=== PATIENT | male | born 1950 | race Caucasian/White ===

== ENCOUNTER → 2023-06-05 13:01 | Outpatient (REF) | payer MEDICARE, SELFPAY | LOC: DHCBS MAIN 13:01 | PROVIDERS: ATTENDING PHYSICIAN Internal Medicine Cardiovascular Disease | DX: Z95.2 Presence of prosthetic heart valve (principal) | CPT/HCPCS: 93306 ==

== ENCOUNTER → 2023-07-07 15:21 | Outpatient (REF) | payer MEDICARE, SELFPAY ==
[2023-07-07 16:14] LABS: INR 1.53; PT 18.2 Sec (11.4-14.6)
== END ==
LOC: REG 15:21
PROVIDERS: ATTENDING PHYSICIAN Internal Medicine Cardiovascular Disease
DX: I25.10 Atherosclerotic heart disease of native coronary artery without angina pectoris (principal); Z95.2 Presence of prosthetic heart valve; I35.8 Other nonrheumatic aortic valve disorders
CPT/HCPCS: 36415; 85610

== ENCOUNTER → 2023-07-17 15:48 | Outpatient (REF) | payer MEDICARE, SELFPAY ==
[2023-07-17 17:35] LABS: INR 2.74; PT 28.9 Sec (11.4-14.6)
== END ==
LOC: REG 15:48
PROVIDERS: ATTENDING PHYSICIAN Internal Medicine Cardiovascular Disease
DX: Z95.2 Presence of prosthetic heart valve (principal); I35.8 Other nonrheumatic aortic valve disorders
CPT/HCPCS: 36415; 85610

== ENCOUNTER → 2023-08-10 16:39 | Outpatient (REF) | payer MEDICARE, SELFPAY ==
[2023-08-10 17:17] LABS: INR 2.03; PT 23.2 Sec (11.4-14.6)
== END ==
LOC: REG 16:39
PROVIDERS: ATTENDING PHYSICIAN Internal Medicine Cardiovascular Disease
DX: Z95.2 Presence of prosthetic heart valve (principal); I35.8 Other nonrheumatic aortic valve disorders
CPT/HCPCS: 36415; 85610

== ENCOUNTER → 2023-09-01 14:44 | Outpatient (REF) | payer MEDICARE, SELFPAY ==
[2023-09-01 17:45] LABS: INR 2.14; PT 24.2 Sec (11.4-14.6)
== END ==
LOC: REG 14:44
PROVIDERS: ATTENDING PHYSICIAN Internal Medicine Cardiovascular Disease
DX: Z95.2 Presence of prosthetic heart valve (principal); I35.8 Other nonrheumatic aortic valve disorders
CPT/HCPCS: 36415; 85610

== ENCOUNTER → 2023-09-25 16:15 | Outpatient (REF) | payer MEDICARE, SELFPAY ==
[2023-09-25 17:43] LABS: INR 2.02; PT 22.7 Sec (11.4-14.6)
== END ==
LOC: REG 16:15
PROVIDERS: ATTENDING PHYSICIAN Internal Medicine Cardiovascular Disease
DX: Z95.2 Presence of prosthetic heart valve (principal); I35.8 Other nonrheumatic aortic valve disorders
CPT/HCPCS: 36415; 85610

== ENCOUNTER → 2023-10-12 14:50 | Outpatient (REF) | payer MEDICARE, SELFPAY ==
--- NOTE | 2023-10-12 16:02 | CARDSERVLU ---
Echocardiogram with [facility] completed after protocol screening completed. Allergies verified.
Patent IV site: left forearm 22 G PC
IV site flushed with 0.9% NaCl pre and post administration.
Diluted bolus method utilized to enhance visualization of ventricular low.
Total volume given: 4____ mL
Patient tolerated all procedures well without complications.
Heplock D/c ed at 1602, site clear, no redness, no edema. Pressure held, no bleeding, 2x2 applied and taped. No change in status.
== END ==
LOC: RCS 14:50
PROVIDERS: ATTENDING PHYSICIAN Internal Medicine Cardiovascular Disease
DX: Z95.2 Presence of prosthetic heart valve (principal)
CPT/HCPCS: 93306; Q9950

== ENCOUNTER → 2023-11-03 13:52 | Outpatient (REF) | payer MEDICARE, SELFPAY ==
[2023-11-03 16:27] LABS: INR 2.74; PT 28.9 Sec (11.4-14.6)
== END ==
LOC: REG 13:52
PROVIDERS: ATTENDING PHYSICIAN Internal Medicine Cardiovascular Disease
DX: Z95.2 Presence of prosthetic heart valve (principal); I35.8 Other nonrheumatic aortic valve disorders
CPT/HCPCS: 36415; 85610

== ENCOUNTER → 2023-12-05 16:23 | Outpatient (REF) | payer MEDICARE, SELFPAY ==
[2023-12-05 17:28] LABS: INR 2.54; PT 27.2 Sec (11.4-14.6)
== END ==
LOC: REG 16:23
PROVIDERS: ATTENDING PHYSICIAN Internal Medicine Cardiovascular Disease
DX: Z95.2 Presence of prosthetic heart valve (principal); I35.8 Other nonrheumatic aortic valve disorders
CPT/HCPCS: 36415; 85610

== ENCOUNTER 2024-01-10 22:15 | Inpatient (IN) | payer MEDICARE, SELFPAY ==
[2024-01-10 15:57] VITALS: BP 172/94
[2024-01-10 16:27] LABS: % Basophils 0.8 % (0-2); % Eosinophils 3.2 % (0-6); % Immature Granulocytes 0.4 % (0-0.5); % Lymphocytes 16.3 % (20.5-51.1); % Neutrophils 73.3 % (42.2-75.2); Absolute Eosinophils 0.2 10^3/uL (0-0.7); Absolute Lymphocytes 0.9 10^3/uL (1.2-3.4); Absolute Monocytes 0.3 10^3/uL (0.1-0.6); Absolute Neutrophils 3.9 10^3/uL (1.4-6.5); Hematocrit 37.2 % (39.0-52.0); Hemoglobin 12.2 g/dL (13.0-18.0); Mean Corp Hgb Conc. 32.8 g/dL (33.0-37.0); Mean Corpuscular Hgb 30.6 pg (27.0-31.0); Mean Corpuscular Volume 93.2 fL (80.0-94.0); Mean Platelet Volume 8.9 fL (7.4-10.4); Nucleated Red Blood Cells % 0 % (-); Platelet Count 168 10^3/uL (130-400); Red Blood Cell Count 3.99 10^6/uL (4.70-6.10); White Blood Cell Count 5.3 10^3/uL (4.8-10.8)
[2024-01-10 16:38] LABS: ALT (SGPT) 21 U/L (0-50); AST (SGOT) 31 U/L (17-59); Alkaline Phosphatase 113 U/L (38-126); Blood Urea Nitrogen 16 mg/dl (9-20); Calcium 8.8 mg/dl (8.4-10.2); Carbon Dioxide 26 mmol/L (22-30); Chloride 99 mmol/L (98-107); Glucose 88 mg/dl (70-99); Sodium 136 mmol/L (135-145); Total Bilirubin 1.7 mg/dl (0.2-1.3); eGFR > 60.00
--- NOTE | 2024-01-10 17:58 | ED.GENMED ---
Addendum entered and electronically signed by RENEA Hicks 01/11/24 01:34:
PT 27.5 with INR 2.52, PTT 54.4
Original Note:
History of Present Illness
General
Chief Complaint: Swelling
Source: patient
Exam Limitations: none
Time Seen by Provider: 01/10/24 17:55
History of Present Illness
History of Present Illness:
This is a 73 year old male that comes in with c/o right leg pain and swelling. States that he started with pain in the right leg about 3 weeks ago. States that the pain was sharp in the calf. The pain has increased over the past week and know he has
noticed that there is swelling. States that there is some discoloration. States that he is SOB when getting up or sitting down. Denies any fever, chills, Chest pain, abd pain, nausea, vomiting, diarrhea, headache, dizziness, urinary burning.
Past History
Past History
ED Past Medical History: CAD, Hypercholesterolemia and Other (Hep. Type unknown, Syncopal episodes, back pain, Headaches, )
ED Past Surgical History: Cardiac (Sents) and Other (Vasectomy, Hernia, Cervical nerve repair ?)
Social History
Tobacco: Smoker
Alcohol: Daily (Beer 2-3)
Drug: None
Personal:
Living: alone
Employment: Employed (active directory specialist)
Family History
Family History: Other (Noncontributory)
Review of Systems
Review of Systems
All Other Systems: ROS reviewed and negative except as documented in HPI and ROS
Constitutional: Reports no symptoms; Denies fever or chills
EENT: Reports no symptoms
Respiratory: Reports trouble breathing (SOB with getting up or sitting); Denies cough
Cardiac: Reports no symptoms; Denies chest pain
ABD/GI: Reports no symptoms; Denies abdominal pain, nausea, vomiting or diarrhea
: Reports no symptoms; Denies dysuria, frequency or urgency
Musculoskeletal: Reports other (Right leg pain and swelling)
Skin: Reports no symptoms
Neurological: Reports no symptoms; Denies dizzy or headache
Psychiatric: Reports no symptoms
Phy Exam
General Physical Exam
General Presentation: no apparent distress
General age: appears stated age
General Skin: warm and dry
General Habitus: elderly
General Mental: alert
General Hydration: appears well hydrated
ENT Exam
ENT Exam: TM's normal, pharynx normal and neck supple
Eye Exam
Eye Exam: EOMI
Cardiovascular Exam
Cardiovascular Exam: regular rate/rhythm
Pulmonary Exam
Pulmonary Exam: no rales, chest non tender, no crackles, no rhonchi and other (Exp wheezing throughout, SOB noted with activity)
Gastrointestinal Exam
Gastrointestinal Exam: normal bowel sounds, non tender, soft, no organomegaly, no pulsatile mass and non distended
Musculoskeletal Exam
Musculoskeletal Exam: full ROM, edema (Slight right lower leg swelling nonpitting. ) and other (Unable to palpate right popliteal or pedal pulse. Right foot slightly red in color with bruising noted on the distal knee and lateral knee)
Skin Exam
Skin Exam: normal color, warm/dry, no rash and no petechia
Psychiatric Exam
Psychiatric Exam: normal mood/affect
Scores
Heart Failure Risk
Heart Failure Risk Score: Not Applicable
Course
Orders/Labs/Results
Orders:
Orders
01/10/24 15:59
Legs, Right US [US Periph Venous LOWER Ext RT] Urgent
Comment:
Reason For Exam: swelling and pain
01/10/24 16:06
CMP [Comprehensive Metabolic Panel] Urgent
Complete Blood Count/With Diff Urgent
01/10/24 18:35
CT Abd Aorta Angio W/ Run Off Urgent
Comment: occlusion of arteries noted on US
Reason For Exam: Right leg pain, swelliing
Abnormal Lab Results
01/10/24
16:06
RBC 3.99 L 10^6/uL
(4.70-6.10)
Hgb 12.2 L g/dL
(13.0-18.0)
Hct 37.2 L %
(39.0-52.0)
MCHC 32.8 L g/dL
(33.0-37.0)
Absolute Lymphs (auto) 0.9 L 10^3/uL
(1.2-3.4)
Lymphocytes % 16.3 L %
(20.5-51.1)
Total Bilirubin 1.7 H mg/dl
(0.2-1.3)
01/10/24 16:06
01/10/24 16:06
H/H slightly low. Total latrice elevation.
Vital Signs
Initial and Last Documented VS:
Initial Vital Signs
Temp Pulse Resp BP Pulse Ox
98.5 F 91 16 172/94 95
01/10/24 15:57 01/10/24 15:57 01/10/24 15:57 01/10/24 15:57 01/10/24 15:57
Last Documented Vital Signs
Temp Pulse Resp BP Pulse Ox
98.5 F 91 16 172/94 100
01/10/24 15:57 01/10/24 15:57 01/10/24 15:57 01/10/24 15:57 01/10/24 18:26
MDM/Problems Addressed
Differential Diagnosis Includes:
Arterial occlusion,
MDM/Problems Addressed:
This is a 73 year old male that comes in with c/o right leg pain and swelling. States that this started 3 weeks ago and has continued to get worse.
Unable to get Pulses with the Doppler. Will get labs. Spoke with Dr. Dobbins. Will get CTA with Run off.
CTA done and which does show occlusion. Dr. Romero is not convinced that this is all chronic and wanted patient place on Heparin. Patient refused as he states that he is on Coumadin. Will Hold on the Coumadin and admit With Dr. Dobbins on Consult.
Hospitalist notified about admission.
Chronic conditions affecting care: CAD
Acute Exacerbation and/or Progression of Chronic Illness: CAD
*Radiology
Radiology exam reviewed: radiology read reviewed (US- No evidence of DVT of the right lower extremity. Occlusion of right lower extremity arteries as well as the groin, Thigh and behind the knee. Small Robles's cyst. CTA-Chronic complete occlusion
throughout the majority of the bilateral superficial femoral arteries, similar to prior. ) and other (CTA cont- Continuation of severe peripheral arterial disease within the bilateral lower extremities as detailed above. )
*Pulse Oximetry
Patient hypoxic: no
*EKG
Interpreted by ED Provider?: NA
Rate: EKG- N/A
*Tractor Driver Interpretation
Rate: Tractor Driver- N/A
*Critical Care Note
Total Time (30-74mins, 75-104mins- exclusive of procedures): Not Applicable
ED Attending Note
-
Portions of this chart may have been created with voice recognition software.� Occasional wrong word or��sound alike� substitutions may have occurred due to the inherent limitations of voice recognition software.
Discharge Plan
Departure
Patient Disposition: Admit
Date of Disposition: 01/10/24
Time of Disposition: 20:35
Admit to: Med/Surg
Presentation/result/management discussed w/ accepting MD/DO: Hospitalist
Patient with high blood pressure during this ER visit?: Yes
Condition: Good
Covid-19: Not Applicable
Discharge Problem:
arterial occlusion right leg
Prescriptions:
No Action
furosemide [Lasix] 40 mg tablet
40 mg PO DAILY Qty: 30 11RF
aspirin 81 mg Tablet,Delayed Release (Dr/Ec)
81 mg PO DAILY
carvedilol 6.25 mg Tablet
6.25 mg PO BID Qty: 180 3RF
atorvastatin 40 mg Tablet
40 mg PO QPM Qty: 90 3RF
clopidogrel 75 mg Tablet
75 mg PO DAILY Qty: 90 3RF
acetaminophen 325 mg Tablet
650 mg PO Q6HPRN PRN (Reason: JENKINS, mild pain, or fever >101F) Qty: 0 0RF
Referrals:
NONE,* [Family Provider] -
Interventions
Interventions:
*Risk Screen - Suicide Last Done: 01/10/24 15:57
*General Assessment Last Done: 01/10/24 15:57
*Neglect/Abuse Screening Last Done: 01/10/24 15:57
ED- Fall Risk Assessment Last Done: 01/10/24 18:37
*ED COVID-19 Vaccine History Last Done: 01/10/24 15:57
ED- Cardiac Assessment Last Done: 01/10/24 18:37
ED- Pulmonary Assessment Last Done: 01/10/24 18:37
Discharge Date and Time
Print Language: COLOMBIAN
[2024-01-10 20:36] VITALS: BMI 24.7
[2024-01-10 20:58] LABS: INR 2.52; PT 27.5 Sec (11.4-14.6)
--- NOTE | 2024-01-10 21:16 | HPS.HSE ---
Family Physician
-
Family Physician: * NONE
Chief Complaint
-
Right lower extremity pain and swelling
History of Present Illness
This is a 73-year-old with past medical history that is significant for CAD status post stenting, aortic valve replacement, hypertension and hyperlipidemia who also has a prior history of peripheral vascular disease presents to the emergency
department with approximately 3 weeks of persistent right lower extremity swelling.
Patient denies prior history of such swelling. He reports sudden onset. He reports intermittent pain mostly in his calf and also in the thigh. Reports occasional shooting sensation at the ankle. He denies any pain at his toes. He denies any
loss of sensation. He denies cold. The pain does not appear to be exacerbated by activity. No history of any changes in the color or swelling with recumbency. Patient denied having any fevers.
He has been compliant with his anticoagulation and taking Coumadin 3.75 mg every morning. He reports that his INR last month was therapeutic. No recent changes to his Coumadin. He is not on any other antiplatelet or anticoagulation.
On arrival in the emergency department the patient was afebrile he was hypertensive with a blood pressure of 170/90 oxygen saturation was 100% on room air he was nontachycardic. CBC was unremarkable. Chemistries were also unremarkable. INR is
pending. He had a right lower extremity ultrasound which was negative for DVT in the right common femoral, superficial femoral, popliteal and proximal posterior tibial veins and they are compressible. There is a small fluid collection in the right
popliteal fossa measuring 1.5 x 2.5 x 0.6 cm felt to be a benign Robles's cyst. There is occlusion of the right common femoral artery, right superficial femoral artery and popliteal artery. A CT of the abdomen revealed chronic complete occlusion
throughout the majority of the bilateral superficial femoral arteries, similar to prior. History viewed by regional radiology and there is concern for acute on chronic occlusion.
Medical History
Past Medical History
Past Medical History: Reports CAD (Status post PCI with stenting), HTN, Hypercholesterolemia and Other
Additional Past Medical History:
Thrombocytopenia
s/p TAVR
Past Surgical History: Reports Other
Social History
Tobacco: Smoker
Alcohol: Daily
Drug: None
Personal: Single
Living: With Family
Employment: Retired
Family History
Family History: Not pertinent
Allergies / Home Medications
Allergies reflects when Allergies were last updated in [facility].
Home Medications with original date entered in [facility]
Allergy/Medication List:
Allergies
Allergy/AdvReac Type Severity Reaction Status Date / Time
No Known Allergies Allergy Verified 01/10/24 15:56
Home Medications
carvedilol 6.25 mg tablet 6.25 mg PO BID #180 tabs 04/13/22
atorvastatin 40 mg tablet 40 mg PO DAILY 01/10/24
warfarin 2.5 mg tablet 3.75 mg PO DAILY 01/10/24
Review of Systems
-
History Source: Patient
Constitutional: Reports No Symptoms
EENT: Reports No Symptoms
Respiratory: Reports No Symptoms
Cardiac: Reports No Symptoms
Abdomen/GI: Reports No Symptoms
: Reports No Symptoms
Musculoskeletal: Reports Other (right leg swelling and pain)
Skin: Reports No Symptoms
Neurological: Reports No Symptoms
Hematologic/Lymphatic: Reports No Symptoms
Psych: Reports No Symptoms
Physical Exam
Vital Signs
Vital Signs
Temp Pulse Resp BP Pulse Ox
98.5 F 91 16 172/94 99
01/10/24 15:57 01/10/24 15:57 01/10/24 15:57 01/10/24 15:57 01/10/24 18:30
Physical Exam
General: Well Developed, No Apparent Distress, Comfortable and Conversant
HEENT: NormoCephalic, Anicteric, Moist mucous membranes and Atraumatic
Respiratory: Clear
Cardiac: S1/S2 and Regular Rhythm
GI: Soft, Non Tender, Non Distended and Normal Bowel Sounds
Genito-urinary: Deferred by me
Musculoskeletal: No Clubbing, No Cyanosis, Edema, Right Upper Extremity and Edema, Right Lower Extremity (2+, non-pitting edema)
Skin: Warm
Neuro: AO x 3
Hematologic/Lymphatic: No Lymphadenopathy
Psych: Calm
Laboratory Results
-
01/10/24 16:06
01/10/24 16:06
Laboratory Results
PT 27.5 Sec (11.4-14.6) H 01/10/24 20:39
INR 2.52 01/10/24 20:39
Total Bilirubin 1.7 mg/dl (0.2-1.3) H 01/10/24 16:06
AST 31 U/L (17-59) 01/10/24 16:06
ALT 21 U/L (0-50) 01/10/24 16:06
Alkaline Phosphatase 113 U/L (38-126) 01/10/24 16:06
Data Reviewed
-
CT Scan: Report Reviewed by me
Ultrasound: Report Reviewed by me
Lab Data: Labs Reviewed by me and Discussed with Physician
Old Records: Reviewed
Impression/Plan
-
IMPRESSION:
73 y.o with h/o s/p TAVR, CAD, HTN, HLD, PAD presenting with right lower extremity swelling x 3 weeks, no claudication, intermittent pain. Stable. No DVT. Found to have bilateral artrial occlusions. When images evaluated by IR, there is
concern that this is not entirely chronic occlusions
PLAN:
1. PAD - Possibly new arterial occlusions per IR.
- admit to med.surg
- npo after midnight
- heparin gtt, no bolus, holding coumadin
- continue statin
- IR consulted and aware
2. RLE swelling - No DVT. Likely related to the benign bakers cyst
- pain control
- elevate leg at night
3. AC
-holding coumadin
4. HTN
- carvedilol 6.25 bid
Code Status - DNR
[2024-01-10] MEDS: HEPARIN 25000 UNITS/250 ML IV (22:23)
[2024-01-10 22:30] VITALS: BP 155/90
[2024-01-10 23:00] VITALS: BP 180/97
[2024-01-10 23:55] LABS: APTT 54.4 Sec (23.4-35.0)
[2024-01-11] VITALS (10 sets, daily range): BP systolic 156–190; BP diastolic 76–101; BMI 24.6
[2024-01-11 05:00] LABS: Hematocrit 34.5 % (39.0-52.0); Hemoglobin 11.5 g/dL (13.0-18.0); Mean Corp Hgb Conc. 33.3 g/dL (33.0-37.0); Mean Corpuscular Hgb 30.7 pg (27.0-31.0); Mean Corpuscular Volume 92.2 fL (80.0-94.0); Mean Platelet Volume 9.2 fL (7.4-10.4); Platelet Count 141 10^3/uL (130-400); Red Blood Cell Count 3.74 10^6/uL (4.70-6.10); White Blood Cell Count 4.8 10^3/uL (4.8-10.8)
[2024-01-11 05:12] LABS: INR 2.43; PT 26.7 Sec (11.4-14.6)
--- NOTE | 2024-01-11 05:32 | PTCARENOTE ---
Pt admitted to [facility] surg pt. With complaints of RLE swelling. weak but palpable DPs. heparin gtt running on arrival to the floor. admission completed. plan of care discussed. pt verbalized understanding.
[2024-01-11 05:54] LABS: APTT > 200 Sec (23.4-35.0)
[2024-01-11] MEDS: COREG 6.25 MG PO (06:01)
[2024-01-11 06:15] LABS: Blood Urea Nitrogen 14 mg/dl (9-20); Calcium 8.6 mg/dl (8.4-10.2); Carbon Dioxide 25 mmol/L (22-30); Chloride 98 mmol/L (98-107); Estimated Creatinine Clearance 71 ml/min; Glucose 72 mg/dl (70-99); Potassium 4.7 mmol/L (3.5-5.1); Sodium 133 mmol/L (135-145); eGFR > 60.00
--- NOTE | 2024-01-11 06:15 | PTCARENOTE ---
0800 6.25mg Coreg given early per [facility] - pt states he did not take his dose last night
--- NOTE | 2024-01-11 06:31 | PTCARENOTE ---
Pts PTT gathered in the ER. read >200- protocol states to make provider aware and gather further orders.- [facility] DEPARTMENT [facility] made aware- gtt on hold for 2 hrs. PTT entered for 0800- to recheck- follow protocol from there.
--- NOTE | 2024-01-11 07:55 | CON.VAS ---
Addendum entered and electronically signed by Bud Dobbins MD 01/11/24 13:29:
Seen and examined earlier this a.m. with RAYSA Louie. Agree with findings as noted below. This is a late entry. 73-year-old male with history of tobacco use (active use less than a pack a day). He notes that about 4 weeks ago he had onset of right
leg discomfort. He does not necessarily describe it as a definitive pain at all times but more so of a numbness and discomfort. Seems to be more intermittent stabbing-like. Notes that it has not impeded his ability to walk. In fact he feels like
it actually may improve with walking. He noted swelling and fullness of the leg as well. No need to hang the leg off the bed. Occasionally he wakes up with stabbing pain but then it relieves and he is okay. Notes that last pretty briefly when it
occurs. He does have a family history of PAD, brother has what sounds like an aortobifemoral bypass and potentially infrainguinal bypasses while in his 30s. Patient notes that he himself was evaluated by his brothers physician (unclear if a
vascular surgeon or otherwise) who initially had told him that he would need a procedure done but then recommended exercise/walking and the patient has been good since then. Unclear if symptoms at that time involve both legs. He does have a
significant history of coronary artery disease with coronary stenting as well. History of TAVR.
On exam/he is awake and alert. He is in no acute distress. Breathing is unlabored. Abdomen is soft, nondistended, nontender. Palpable bilateral femoral pulses, right side is high in the groin but palpable 1+/2+. Nonpalpable bilateral popliteal
pulses. Trace reconstituted left DP pulse. Nonpalpable on the right. Has Doppler signal at the right DP, but monophasic we can. His foot is pink. He does not really have any rubor. No elevation pallor. Motor function fully intact.
Temperature is symmetric and warm bilaterally. No ulcerations.
CT angiogram images reviewed. Bilateral SFA occlusions. Unclear if the right side is a acute or subacute on chronic.
There is what appears to be thrombus or clot at the origin of the SFA. However the common femoral and profunda are patent. There is reconstituted flow in the below the knee popliteal artery and tibial flow noted.
Plan/peripheral arterial disease. I am not clear that his symptoms are currently peripheral arterial disease related and not neurogenic in nature. I cannot say for sure 1 where the other. Slightly difficult to say. Would recommend RICHARD/TBI
studies. At this point given 4 weeks of symptoms, I do not think he is a great candidate for thrombectomy even if was, and there is evidence of chronic plaque disease as well and therefore I do not know that that would be feasible. Therefore,
would likely recommend bypass for revascularization. There is not an immediate indication at this point, but may require in the relatively near future if he has continued pain symptoms. He does not want to stay in the hospital at this time. I
think it is not unreasonable for him to go home at this point and I will see him in the very near future (i.e. 1 to 2 weeks) to further reevaluate and discuss revascularization strategies as needed. I urged him to make sure he is compliant with
visit.
Original Note:
Consultation
Consultation Request
Performing Provider: Mu
Reason for Consultation: PAD evaluation/arterial occlusion
Medical History
-
Chief Complaint: Right lower extremity pain/swelling
History of Present Illness:
73-year-old male with past medical history significant for CAD status post stenting, aortic valve replacement, hypertension, hyperlipidemia, and known PAD presented to the ER overnight with 4 weeks of right lower extremity swelling/pain which was
worsening in intensity. Denies pain at his toes, denies pain in his feet at night. States he does not walk a lot but does not feel like he is limited by claudication. Patient states walking may help his symptoms and does not feel like he requires
rest with activity to relieve his leg pain. ER DVT ultrasound negative. CTA found chronic occlusions in the right and left SFA. Vascular consult for the above findings, PAD evaluation.
Patient seen at bedside this a.m. with Dr. Dobbins. Patient states pain began with some swelling to the right lower extremity about 4 weeks ago. Patient describes it as intermittent stabbing pain sometimes the left thigh and occasionally in the calf.
Patient does not believe it is brought on with activity but states occasionally it is relieved by walking. Patient denies pain or cramping in the toes and feet. Patient is unsure if tingling his leg off the bed helps relieve pain. Patient does
have dependent rubor to the right foot. Calf is tender with palpation. Skin is all intact, no wounds appreciated.
Patient admits he had seen a vascular surgeon in the past. His brother had had an aortobifem bypass when he was in his 30s. Patient had seen his brothers surgeon and was given the option of a similar surgery versus walking/exercise therapy.
Patient elected exercise therapy and did well with that. Since then he has not been following with anyone for his PAD. Patient admits to smoking 8 cigarettes a day.
Past Medical History
Past Medical History: Other (CAD (Status post PCI with stenting), HTN, Hypercholesterolemia, Thrombocytopenia, s/p TAVR)
Past Surgical History: Cardiac (Stenting and TAVR)
Social History
Tobacco: Smoker (8 cigarettes a day)
Alcohol: Daily
Drug: None
Personal: Single
Living: With Family
Employment: Retired
Family History
Family History: Other (Brother-PAD)
Allergies / Home Medications
Allergy/AdvReac Type Severity Reaction Status Date / Time
No Known Allergies Allergy Verified 01/10/24 15:56
�Medication �Instructions �Recorded �Confirmed �Type
carvedilol 6.25 mg tablet 6.25 mg PO BID #180 tabs 04/13/22 01/10/24 Rx
atorvastatin 40 mg tablet 40 mg PO DAILY 01/10/24 01/10/24 History
warfarin 2.5 mg tablet 3.75 mg PO DAILY 01/10/24 01/10/24 History
Review of Systems
-
History Source: Patient
All other systems: Negative unless noted
Constitutional: Reports No Symptoms
EENT: Reports No Symptoms
Respiratory: Reports No Symptoms
Cardiac: Reports No Symptoms
Vascular: Reports Tingling and Other (Intermittent 'stabbing' pain that can wake him from sleep)
Abdomen/GI: Reports No Symptoms
: Reports No Symptoms
Musculoskeletal: Reports Muscle Stiffness
Skin: Reports No Symptoms
Neurological: Reports No Symptoms
Endocrine: Reports No Symptoms
Physical Exam
Vital Signs
Temp Pulse Resp BP Pulse Ox
97.6 F 72 20 179/87 96
01/11/24 04:50 01/11/24 06:01 01/11/24 04:50 01/11/24 06:01 01/11/24 04:50
Lab Results
01/11/24 04:44
01/11/24 04:44
Physical Exam
General: No Apparent Distress
HEENT: Normocephalic and Atraumatic
Respiratory: Non Labored Respirations
Cardiac: Negative JVD
GI: Soft, Non Tender and Non Distended
Musculoskeletal: No Clubbing, No Cyanosis and No Edema
Skin: Warm, Dry and Other (Right lower extremity skin hardened from knee to toes, dependent rubor. No wounds skin is intact)
Neuro: Awake, Alert and Oriented
Psych: Calm
Pulses: Bilateral Femoral: +2, Left Dorsalis Pedis: +1, Right Dorsalis Pedis: Doppler and Bilateral Posterior Tibial: Doppler
Assessment / Plan
-
73-year-old male with extensive PAD, right lower extremity pain for the last 4 weeks
Patient stable at this time, states pain is manageable at this point. He requests to go home and follow-up with our service as an outpatient for surgical discussion
Plan:
-RICHARD/TBI
-Bilateral venous mapping
-OK for dc from vascular standpoint once studies completed, outpt follow up has been added to chart. Pt educated on signs/symptoms to call office/return to ER for if he worsens before follow up
[2024-01-11 08:34] LABS: Direct Bilirubin 0.4 mg/dl (0.0-0.4); LDH 299 U/L (120-246)
--- NOTE | 2024-01-11 09:40 | W.PN.HOSP.TC ---
Today's Communication/Plan
-
dc
Assessment / Plan
Assessment / Plan
73yo M with PMHx of HLD, severe PAD with artertial occlusion came with 3 weeks of worsening RLE swelling and pain from ankle and up, found extensive arterial occlusive thrombus. Patient did not miss warfarin and his INR recently was not
subtherapeutic. No recent trauma reported. VascSx advised to continue warfarin and will follow up as outpatient for surgical mgmt of his PAD as agreed with the patient. Medcially stable for d/c after venous mapping.
A/P
#Severe PAD with chronic arterial occlusion
INR therapeutic
Cont warfarin
VascSx - will follow up as outpatient
Venous mapping while admitted
#Essential HTN
#HLD
cont home meds
DVT ppx on coumadin
DNR/DNI
I have spent at least 88min reviewing chart, test results, communication with consultants and direct patient care
Anticipated Discharge: Today
Subjective/Interval History
-
Date of Service: January 11, 2024
Objective Data
-
Labs:
Laboratory Results
01/10/24 01/10/24 01/11/24
20:39 21:33 04:44
WBC Cancelled 4.8
Hgb Cancelled 11.5 L
Hct Cancelled 34.5 L
Plt Count Cancelled 141
PT 26.7 H
INR 2.43
APTT 54.4 H Cancelled > 200 H*
Sodium 133 L
Potassium 4.7
Chloride 98
Carbon Dioxide 25
BUN 14
Creatinine 1.0
Glucose 72
Calcium 8.6
01/11/24
08:00
WBC
Hgb
Hct
Plt Count
PT
INR
APTT Pending
Sodium
Potassium
Chloride
Carbon Dioxide
BUN
Creatinine
Glucose
Calcium
Vital Signs:
Vital Signs
Temp Pulse Resp BP Pulse Ox
97.8 F 65 20 169/83 98
01/11/24 08:08 01/11/24 08:08 01/11/24 08:08 01/11/24 08:08 01/11/24 08:08
Review of Systems
-
History Source: Patient
All other systems: Reviewed and negative
Musculoskeletal: Reports Other (RLE calf pain and swelling)
Physical Exam
-
General: Comfortable
HEENT: Normocephalic
Respiratory: Clear to Auscultation
Cardiac: Regular Rhythm
GI: Soft, Nontender and Nondistended
Musculoskeletal: Other (RLE edema with pain on palpation, ecchymosis around R knee)
Neuro: Awake, Alert, Oriented and AO x 3
--- NOTE | 2024-01-11 09:45 | W.DCSUMMARY ---
Discharge Summary
Discharge Data
Date of Admission: 01/10/24
Date of Discharge: 01/11/24
-
Pending Results: No
Hospital Course
73yo M with PMHx of HLD, severe PAD with artertial occlusion came with 3 weeks of worsening RLE swelling and pain from ankle and up, found extensive arterial occlusive thrombus. Patient did not miss warfarin and his INR recently was not
subtherapeutic. No recent trauma reported. VascSx advised to continue warfarin and will follow up as outpatient for surgical mgmt of his PAD as agreed with the patient. Medcially stable for d/c after venous mapping.
A/P
#Severe PAD with chronic arterial occlusion
#Essential HTN
#HLD
#Mild anemia - outpatient follow up
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
#Mild hyponatremia - most likely transient, follow up with PCP
I have spent at least 88min reviewing chart, test results, communication with consultants and direct patient care
Discharge Plan
-
Patient Disposition: Home (Routine Discharge)
Discharge Diagnosis/Procedures: PAD
Diet: Low Cholesterol
Activity: As tolerated
Driving Restrictions: As prior to admission
Referrals:
NONE,* [Family Provider] - (Repeat CBC and BMP in 1 week)
Bud Dobbins MD [Active] - 01/16/24 11:00 am (Vascular surgical discussion)
Prescriptions:
Continued
carvedilol 6.25 mg Tablet
6.25 mg PO BID Qty: 180 3RF
warfarin 2.5 mg Tablet
3.75 mg PO DAILY
atorvastatin 40 mg tablet
40 mg PO DAILY
Discharge Orders:
Discharge Patient (As Directed); Ordered 01/11/24
Ordered By: Sharan Purvis
Care Plan Goals
Care Plan Goals:
Problem: Readiness for enhanced knowledge related to diagnosis and treatment plan
Goal: Understand your diagnosis and treatment plan needs, including medications if applicable.
Instructions: Know your diagnosis, underlying causes and treatment plan options, including medications if applicable. Consult with your health care team to learn about your diagnosis and treatment plan, including medications if applicable.
Discharge Date and Time
Print Language: LAO
[2024-01-11] MEDS: COUMADIN 3.75 MG PO (10:07)
[2024-01-11] MEDS: LIPITOR 40 MG PO (10:08)
--- NOTE | 2024-01-11 11:00 | PTCARENOTE ---
Patient discharged to home. Discharge teaching provided, verbalized understanding. Patient escorted to main lobby by staff.
--- NOTE | 2024-01-11 11:41 | CM ---
Chart reviewed. Patient is independent of ADLS, lives alone, multi level home, 0 DAYSI, 0 DME. Plan is for the patient to return home.
== END 2024-01-11 11:11 | disposition home or self-care (01) | DRG 300 ==
LOC: IVU 22:15
PROVIDERS: Clinical Nurse Specialist Family Health; Emergency Medicine; ADMITTING PHYSICIAN Internal Medicine; ATTENDING PHYSICIAN Internal Medicine; CONSULT PHYSICIAN Surgery Vascular Surgery; EMERGENCY PHYSICIAN Emergency Medicine
DX: I70.201 Unspecified atherosclerosis of native arteries of extremities, right leg (principal); E87.1 Hypo-osmolality and hyponatremia; F17.210 Nicotine dependence, cigarettes, uncomplicated; M71.20 Synovial cyst of popliteal space [Baker], unspecified knee; I10 Essential (primary) hypertension; Z66 Do not resuscitate; E78.00 Pure hypercholesterolemia, unspecified; D64.9 Anemia, unspecified; Z79.01 Long term (current) use of anticoagulants
CPT/HCPCS: 36415; 75635; 80048; 80053; 82248; 83615; 85025; 85027; 85610; 85730; 93922; 93970; 93971; 96365; 96366; 99285; Q9967

== ENCOUNTER → 2024-02-21 14:48 | Outpatient (REF) | payer MEDICARE, SELFPAY ==
[2024-02-21 16:22] LABS: INR 1.95; PT 22.7 Sec (11.4-14.6)
== END ==
LOC: REG 14:48
PROVIDERS: ATTENDING PHYSICIAN Internal Medicine Cardiovascular Disease
DX: Z95.2 Presence of prosthetic heart valve (principal); I35.8 Other nonrheumatic aortic valve disorders
CPT/HCPCS: 36415; 85610

== ENCOUNTER → 2024-04-03 16:05 | Outpatient (REF) | payer MEDICARE, SELFPAY ==
[2024-04-03 17:50] LABS: INR 1.82; PT 21.6 Sec (11.4-14.6)
== END ==
LOC: REG 16:05
PROVIDERS: ATTENDING PHYSICIAN Internal Medicine Cardiovascular Disease
DX: Z95.2 Presence of prosthetic heart valve (principal); I35.8 Other nonrheumatic aortic valve disorders
CPT/HCPCS: 36415; 85610

== ENCOUNTER → 2024-04-30 15:29 | Outpatient (REF) | payer MEDICARE, SELFPAY ==
[2024-04-30 16:37] LABS: INR 2.24; PT 24.9 Sec (11.4-14.6)
== END ==
LOC: REG 15:29
PROVIDERS: ATTENDING PHYSICIAN Internal Medicine Cardiovascular Disease
DX: Z95.2 Presence of prosthetic heart valve (principal); I35.8 Other nonrheumatic aortic valve disorders
CPT/HCPCS: 36415; 85610

== ENCOUNTER → 2024-06-04 14:07 | Outpatient (REF) | payer MEDICARE, SELFPAY ==
[2024-06-04 16:09] LABS: INR 2.01; PT 22.9 Sec (11.4-14.6)
== END ==
LOC: RAD 14:07
PROVIDERS: ATTENDING PHYSICIAN Registered Nurse; REFERRING PHYSICIAN Internal Medicine Cardiovascular Disease
DX: I77.9 Disorder of arteries and arterioles, unspecified (principal); Z95.2 Presence of prosthetic heart valve; I35.8 Other nonrheumatic aortic valve disorders
CPT/HCPCS: 36415; 85610; 93922; 93925

== ENCOUNTER → 2024-07-02 14:04 | Outpatient (REF) | payer MEDICARE, SELFPAY | LOC: HWRCS 14:04 | PROVIDERS: ATTENDING PHYSICIAN Internal Medicine Cardiovascular Disease | DX: Z95.2 Presence of prosthetic heart valve (principal) | CPT/HCPCS: 93306 ==

== ENCOUNTER → 2024-08-01 15:50 | Outpatient (REF) | payer MEDICARE, SELFPAY ==
[2024-08-01 17:27] LABS: INR 2.74; PT 29.4 Sec (11.4-14.6)
== END ==
LOC: REG 15:50
PROVIDERS: ATTENDING PHYSICIAN Internal Medicine Cardiovascular Disease
DX: Z95.2 Presence of prosthetic heart valve (principal); I35.8 Other nonrheumatic aortic valve disorders
CPT/HCPCS: 36415; 85610

== ENCOUNTER → 2024-09-24 16:09 | Outpatient (REF) | payer MEDICARE, SELFPAY ==
[2024-09-24 17:20] LABS: INR 2.01; PT 22.9 Sec (11.4-14.6)
== END ==
LOC: REG 16:09
PROVIDERS: ATTENDING PHYSICIAN Internal Medicine Cardiovascular Disease
DX: Z95.2 Presence of prosthetic heart valve (principal); I35.8 Other nonrheumatic aortic valve disorders
CPT/HCPCS: 36415; 85610

== ENCOUNTER → 2025-03-17 14:50 | Outpatient (REF) | payer MEDICARE, SELFPAY ==
[2025-03-17 15:47] LABS: INR 2.77; PT 29.5 Sec (11.4-14.6)
== END ==
LOC: RCS 14:50
PROVIDERS: ATTENDING PHYSICIAN Internal Medicine Cardiovascular Disease
DX: Z95.2 Presence of prosthetic heart valve (principal); I35.8 Other nonrheumatic aortic valve disorders
CPT/HCPCS: 36415; 85610